=== PATIENT | male | born 1975 | race Caucasian/White ===

== ENCOUNTER 2020-05-16 11:15 | Inpatient (IN) ==
[2020-05-16] MEDS ORDERED: KETOROLAC TROMETHAMINE 15 MG/ML VIAL IV STA (12:10)
[2020-05-16] MEDS ORDERED: SODIUM CHLORIDE 0.9% 1000ML 2,000 ML IV SCH (12:15)
--- NOTE | 2020-05-16 12:18 | Emergency Department Note ---
Impression & Plan Anaplasmosis, Fever, Elevated LFTs ED Provider Note Provider: Byron Rodriguez MD DATE OF SERVICE: 05/16/2020 CHIEF COMPLAINT: Fever, headache, fatigue HISTORY OF PRESENT ILLNESS: Patient is a 44-year-old gentleman history of reflux on Nexium presenting today complaining of onset of fever and myalgia with headache starting about 36 hours ago. Patient states that he works in the [employer]. Lives at home with his . Denies travel or sick contact that he knows of. His is well. Endorses a fever 103 yesterday with diffuse myalgias and headache. Slight light-sensitive. Denies neck pain sore throat cough or rhinorrhea. States with exertion he feels maybe slightly short of breath. Denies chest pain or abdominal pain but did vomit once last night. Denies diarrhea. Denies rash or recent tick bite. Denies history of similar. Has been using some Tylenol last around 9 AM this morning which has intermittently helped with his fever symptoms. REVIEW OF SYSTEMS: A total of 10 review of systems was obtained and negative except as stated above in the HPI. PAST MEDICAL HISTORY: As noted above MEDICATIONS: Nexium SOCIAL HISTORY: Occasional smoker, works at the penitentiary, lives at home with , regular alcohol PHYSICAL EXAM: GENERAL: alert and oriented laying on the stretcher with eyes closed resting Head: normocephalic and atraumatic EYES: No injection, discharge or icterus. PERRL, EOMI. mildly photophobic NECK: Trachea midline. Supple. Non-meningismus ENT: Mucous membranes pink and moist. Pharynx without erythema or exudate. LUNGS: Airway patent. No retractions. Breath sounds clear with good air entry bilaterally. HEART: Regular rate and rhythm. No chest wall tenderness ABDOMEN: Soft and non-tender, without guarding or rebound. SKIN: Acyanotic, warm, dry, without rashes EXTREMITIES: Without swelling, tenderness or deformity NEUROLOGICAL: No focal deficits. No aphasia. No facial droop or slurred speech. EKG: Sinus tachycardia 105 bpm. No PVCs. No acute ST segment elevation or depression. QTC 46. CONTINUOUS CARDIAC MONITORING: was ordered and showed a heart rate of 118 bpm in sinus tachycardia Patient's hypertension was referred to PCP HOSPITAL COURSE: [id number] Patient was first seen and H&P performed. 1430 Patient reassessed and updated. Patient was reassessed and still with fever and tachycardic and appears somewhat flushed. Discussed findings. Discussed concern for possible tickborne illness. Discussed recommendation for the observation the hospital patient was agreement. Will discuss with the hospitalist team. Patient's laboratory studies and imaging reviewed. Differential includes Viral syndrome, otitis, pharyngitis, pneumonia, influenza, meningitis, urinary tract infection, sepsis, bacteremia, as well as other p athologies. IMPRESSION/MEDICAL DECISION MAKING: Patient presents with fever myalgias and some headache over 36 hours ago. Does not appear grossly meningitic. Febrile here and given Toradol. No leukocytosis is noted or anemia. No focal neurological deficits and I doubt this represents CVA or subarachnoid hemorrhage or brain mass. Without evidence of significant electrolyte abnormality. LFTs are mildly elevated in the 400s and 300s without bilirubin elevation. Negative troponin EKG without findings. Lipase is negative for signs of pancreatitis. Do question if this could be again tick borne disease versus mild hepatitis versus coronavirus. Covid test was ordered although lower suspicion. Blood smear is concerning for anaplasmosis. Initially did cover broadly with ceftriaxone and given doxycycline. Given that he still appears quite weak and symptomatic discussed with the hospitalist further observation the patient was in agreement this plan. Later given some Tylenol for persistent fever. DIAGNOSIS: Fever, anaplasmosis, elevated LFTs DISPOSITION: Hospitalist will evaluate Patient was agreeable with this plan. Past Med/Surg History Medical History GERD (gastroesophageal reflux disease) Lyme disease Surgical History H/O vasectomy Family History Other Breast cancer Prostate cancer Social History Preferred Language: Mohawk Current Living Situation: Spouse Feels Safe at Home: Yes Smoking Status: Current some day smoker Tobacco Type: smokeless tobacco ; Hx Alcohol Use: Yes Allergies Allergies Allergy/AdvReac Type Severity Reaction Status Date / Time fexofenadine Allergy . Verified 05/16/20 14:44 Home Meds Home Medications Medication Instructions Recorded Confirmed esomeprazole magnesium [Nexium] 20 mg PO QAM 05/16/20 05/16/20 Results & Data (ED) Vital Signs Vital Signs - 24 hr 05/16/20 11:19 05/16/20 11:26 05/16/20 11:28 Temperature 37.0 C Temperature Source Oral Pulse Rate 105 H 107 H 105 H Pulse Rate [Apical] Pulse Rate from SpO2 Sensor 107 H 106 H Respiratory Rate 26 H 28 H 30 H Respiratory Effort / Characteristics Short of Breath Respiratory Depth Normal Respiratory Pattern Regular Blood Pressure 138/91 138/91 Blood Pressure [Right Arm] Blood Pressure Mean 106 99 Blood Pressure Mean [Right Arm] Blood Pressure Position Sitting Pulse Oximetry 98 98 98 Oxygen Delivery Method Room Air Sepsis Recent Fever Within 48 Hours Yes Sepsis New/Unexplained Change in Mental Status No Sepsis Action Taken by Nursing Physician Notified 05/16/20 11:30 05/16/20 12:00 05/16/20 12:30 Temperature Temperature Source Pulse Rate 105 H 108 H 112 H Pulse Rate [Apical] Pulse Rate from SpO2 Sensor 106 H 108 H 112 H Respiratory Rate 28 H 30 H 23 Respiratory Effort / Characteristics Respiratory Depth Respiratory Pattern Blood Pressure Blood Pressure [Right Arm] Blood Pressure Mean Blood Pressure Mean [Right Arm] Blood Pressure Position Pulse Oximetry 98 95 96 Oxygen Delivery Method Sepsis Recent Fever Within 48 Hours Sepsis New/Unexplained Change in Mental Status Sepsis Action Taken by Nursing 05/16/20 13:00 05/16/20 13:30 05/16/20 13:41 Temperature Temperature Source Pulse Rate 115 H 116 H 118 H Pulse Rate [Apical] Pulse Rate from SpO2 Sensor 140 H 116 H 118 H Respiratory Rate 30 H 26 H 32 H Respiratory Effort / Characteristics Respiratory Depth Respiratory Pattern Blood Pressure 166/93 H Blood Pressure [Right Arm] Blood Pressure Mean 105 Blood Pressure Mean [Right Arm] Blood Pressure Position Pulse Oximetry 96 98 97 Oxygen Delivery Method Sepsis Recent Fever Within 48 Hours Sepsis New/Unexplained Change in Mental Status Sepsis Action Taken by Nursing 05/16/20 13:42 05/16/20 14:00 05/16/20 14:30 Temperature Temperature Source Pulse Rate 117 H 112 H Pulse Rate [Apical] 116 H Pulse Rate from SpO2 Sensor 117 H 111 H Respiratory Rate 28 H 31 H 22 Respiratory Effort / Characteristics Respiratory Depth Respiratory Pattern Blood Pressure Blood Pressure [Right Arm] 166/93 H Blood Pressure Mean Blood Pressure Mean [Right Arm] 117 Blood Pressure Position Pulse Oximetry 96 94 96 Oxygen Delivery Method Room Air Sepsis Recent Fever Within 48 Hours Sepsis New/Unexplained Change in Mental Status Sepsis Action Taken by Nursing 05/16/20 14:44 05/16/20 15:00 05/16/20 15:30 Temperature 38.3 C H Temperature Source Oral Pulse Rate 107 H 102 H 100 H Pulse Rate [Apical] 107 H Pulse Rate from SpO2 Sensor 107 H 102 H 100 H Respiratory Rate 26 H 19 26 H Respiratory Effort / Characteristics Respiratory Depth Respiratory Pattern Blood Pressure 117/66 Blood Pressure [Right Arm] 117/66 Blood Pressure Mean 76 Blood Pressure Mean [Right Arm] 83 Blood Pressure Position Pulse Oximetry 96 97 95 Oxygen Delivery Method Room Air Sepsis Recent Fever Within 48 Hours Sepsis New/Unexplained Change in Mental Status Sepsis Action Taken by Nursing 05/16/20 16:00 05/16/20 16:30 05/16/20 16:51 Temperature Temperature Source Pulse Rate 100 H 102 H Pulse Rate [Apical] Pulse Rate from SpO2 Sensor 100 H Respiratory Rate 30 H 18 Respiratory Effort / Characteristics Respiratory Depth Respiratory Pattern Blood Pressure 125/77 Blood Pressure [Right Arm] Blood Pressure Mean 93 Blood Pressure Mean [Right Arm] Blood Pressure Position Pulse Oximetry 94 Oxygen Delivery Method Sepsis Recent Fever Within 48 Hours Sepsis New/Unexplained Change in Mental Status Sepsis Action Taken by Nursing 05/16/20 17:00 05/16/20 17:30 05/16/20 18:03 Temperature Temperature Source Pulse Rate 108 H 105 H 109 H Pulse Rate [Apical] Pulse Rate from SpO2 Sensor Respiratory Rate 23 31 H 29 H Respiratory Effort / Characteristics Respiratory Depth Respiratory Pattern Blood Pressure Blood Pressure [Right Arm] Blood Pressure Mean Blood Pressure Mean [Right Arm] Blood Pressure Position Pulse Oximetry Oxygen Delivery Method Sepsis Recent Fever Within 48 Hours Sepsis New/Unexplained Change in Mental Status Sepsis Action Taken by Nursing 05/16/20 18:30 05/16/20 18:51 05/16/20 18:54 Temperature 39.6 C H Temperature Source Oral Pulse Rate 114 H 115 H Pulse Rate [Apical] Pulse Rate from SpO2 Sensor Respiratory Rate 36 H 21 Respiratory Effort / Characteristics Respiratory Depth Respiratory Pattern Blood Pressure 143/92 H Blood Pressure [Right Arm] Blood Pressure Mean 103 Blood Pressure Mean [Right Arm] Blood Pressure Position Pulse Oximetry Oxygen Delivery Method Sepsis Recent Fever Within 48 Hours Sepsis New/Unexplained Change in Mental Status Sepsis Action Taken by Nursing 05/16/20 20:13 Temperature 37.7 C H Temperature Source Oral Pulse Rate Pulse Rate [Apical] 110 H Pulse Rate from SpO2 Sensor Respiratory Rate 26 H Respiratory Effort / Characteristics Respiratory Depth Respiratory Pattern Blood Pressure Blood Pressure [Right Arm] 125/85 Blood Pressure Mean Blood Pressure Mean [Right Arm] 98 Blood Pressure Position Pulse Oximetry 95 Oxygen Delivery Method Room Air Sepsis Recent Fever Within 48 Hours Sepsis New/Unexplained Change in Mental Status Sepsis Action Taken by Nursing Laboratory Data Result diagrams: 05/16/20 13:05 05/16/20 13:05 Lab Results 05/16/20 05/16/20 05/16/20 Range/Units 13:05 13:05 13:05 WBC (4.8-10.8) K/uL RBC (4.7-6.1) M/uL Hgb (14.0-18.0) g/dL Hct (42-52) % MCV (80-100) fL MCH (25-34) pg MCHC (32-36) g/dL RDW Std Deviation (36.4-46.3) fL RDW Coeff of Sharyn (11.5-14.5) % Plt Count (130-400) K/uL MPV (7.4-10.4) fL Immature Gran % (Auto) % Neut % (Auto) % Lymph % (Auto) % Fountain % (Auto) % Eos % (Auto) % Baso % (Auto) % Neut # (Auto) (1.4-6.5) K/uL Lymph # (Auto) (1.2-3.4) K/uL Fountain # (Auto) (0.11-0.59) K/uL Eos # (Auto) (0-0.5) K/uL Baso # (Auto) (0-0.2) K/uL Immature Gran # (Auto) (0.00-0.02) K/uL Absolute Nucleated RBC (0-0) K/uL Nucleated RBC % (auto) % PT 11.0 (9.0-12.0) Seconds INR 1.0 (0.9-1.1) Sodium 137 (136-145) mmol/L Potassium 3.6 (3.5-5.1) mmol/L Chloride 104 (98-107) mmol/L Carbon Dioxide 24 (21-32) mmol/L Anion Gap 9.0 (3-11) BUN 11 (7-18) mg/dl Creatinine 1.26 (0.6-1.4) mg/dl Est Cr Clr Drug Dosing 82.9 ml/min Est GFR ( Amer) 79.3 Est GFR (Non-Af Amer) 68.4 BUN/Creatinine Ratio 8.4 L (10-20) Glucose 122 H (70-99) mg/dl Lactate (0.4-2.0) mmol/L Calcium 8.5 (8.5-10.1) mg/dl Total Bilirubin 0.5 (0.2-1) mg/dl AST 466 H (15-37) U/L ALT 355 H (12-78) U/L Alkaline Phosphatase 73 (45-117) U/L Troponin I < 0.015 (0-0.045) ng/ml Total Protein 8.3 H (6.4-8.2) gm/dl Albumin 3.3 L (3.4-5.0) gm/dl Globulin 5.0 H (2.5-4.0) gm/dl Albumin/Globulin Ratio 0.7 L (0.9-2) Lipase 75 (73-393) U/L Procalcitonin 1.02 H (0-0.5) ng/ml Anaplasma Smear A. phagocytophilum DNA Lyme Disease IgG Ab (Negative) Lyme Disease IgM Ab (Negative) 05/16/20 05/16/20 05/16/20 Range/Units 13:05 13:05 13:05 WBC 6.25 (4.8-10.8) K/uL RBC 5.45 (4.7-6.1) M/uL Hgb 16.8 (14.0-18.0) g/dL Hct 49.4 (42-52) % MCV 90.6 (80-100) fL MCH 30.8 (25-34) pg MCHC 34.0 (32-36) g/dL RDW Std Deviation 45.8 (36.4-46.3) fL RDW Coeff of Sharyn 14.0 (11.5-14.5) % Plt Count 205 (130-400) K/uL MPV 9.4 (7.4-10.4) fL Immature Gran % (Auto) 0.3 % Neut % (Auto) 89.0 % Lymph % (Auto) 8.2 % Fountain % (Auto) 2.2 % Eos % (Auto) 0.0 % Baso % (Auto) 0.3 % Neut # (Auto) 5.56 (1.4-6.5) K/uL Lymph # (Auto) 0.51 L (1.2-3.4) K/uL Fountain # (Auto) 0.14 (0.11-0.59) K/uL Eos # (Auto) 0.00 (0-0.5) K/uL Baso # (Auto) 0.02 (0-0.2) K/uL Immature Gran # (Auto) 0.02 (0.00-0.02) K/uL Absolute Nucleated RBC 0.00 (0-0) K/uL Nucleated RBC % (auto) 0.0 % PT (9.0-12.0) Seconds INR (0.9-1.1) Sodium (136-145) mmol/L Potassium (3.5-5.1) mmol/L Chloride (98-107) mmol/L Carbon Dioxide (21-32) mmol/L Anion Gap (3-11) BUN (7-18) mg/dl Creatinine (0.6-1.4) mg/dl Est Cr Clr Drug Dosing ml/min Est GFR ( Amer) Est GFR (Non-Af Amer) BUN/Creatinine Ratio (10-20) Glucose (70-99) mg/dl Lactate (0.4-2.0) mmol/L Calcium (8.5-10.1) mg/dl Total Bilirubin (0.2-1) mg/dl AST (15-37) U/L ALT (12-78) U/L Alkaline Phosphatase (45-117) U/L Troponin I (0-0.045) ng/ml Total Protein (6.4-8.2) gm/dl Albumin (3.4-5.0) gm/dl Globulin (2.5-4.0) gm/dl Albumin/Globulin Ratio (0.9-2) Lipase (73-393) U/L Procalcitonin (0-0.5) ng/ml Anaplasma Smear See Comment A Cancelled A. phagocytophilum DNA Lyme Disease IgG Ab Negative (Negative) Lyme Disease IgM Ab Negative (Negative) 05/16/20 05/16/20 05/16/20 Range/Units 13:05 13:33 17:31 WBC (4.8-10.8) K/uL RBC (4.7-6.1) M/uL Hgb (14.0-18.0) g/dL Hct (42-52) % MCV (80-100) fL MCH (25-34) pg MCHC (32-36) g/dL RDW Std Deviation (36.4-46.3) fL RDW Coeff of Sharyn (11.5-14.5) % Plt Count (130-400) K/uL MPV (7.4-10.4) fL Immature Gran % (Auto) % Neut % (Auto) % Lymph % (Auto) % Fountain % (Auto) % Eos % (Auto) % Baso % (Auto) % Neut # (Auto) (1.4-6.5) K/uL Lymph # (Auto) (1.2-3.4) K/uL Fountain # (Auto) (0.11-0.59) K/uL Eos # (Auto) (0-0.5) K/uL Baso # (Auto) (0-0.2) K/uL Immature Gran # (Auto) (0.00-0.02) K/uL Absolute Nucleated RBC (0-0) K/uL Nucleated RBC % (auto) % PT (9.0-12.0) Seconds INR (0.9-1.1) Sodium (136-145) mmol/L Potassium (3.5-5.1) mmol/L Chloride (98-107) mmol/L Carbon Dioxide (21-32) mmol/L Anion Gap (3-11) BUN (7-18) mg/dl Creatinine (0.6-1.4) mg/dl Est Cr Clr Drug Dosing ml/min Est GFR ( Amer) Est GFR (Non-Af Amer) BUN/Creatinine Ratio (10-20) Glucose (70-99) mg/dl Lactate 2.7 H* 1.0 (0.4-2.0) mmol/L Calcium (8.5-10.1) mg/dl Total Bilirubin (0.2-1) mg/dl AST (15-37) U/L ALT (12-78) U/L Alkaline Phosphatase (45-117) U/L Troponin I (0-0.045) ng/ml Total Protein (6.4-8.2) gm/dl Albumin (3.4-5.0) gm/dl Globulin (2.5-4.0) gm/dl Albumin/Globulin Ratio (0.9-2) Lipase (73-393) U/L Procalcitonin (0-0.5) ng/ml Anaplasma Smear A. phagocytophilum DNA Cancelled Lyme Disease IgG Ab (Negative) Lyme Disease IgM Ab (Negative) Administered Medications Discontinued Medications Acetaminophen (Tylenol) 650 mg PO NOW STA Stop: 05/16/20 20:27 Last Admin: 05/16/20 20:39 Dose: 650 mg Documented by: [id number] Doxycycline Hyclate (Vibramycin) 100 mg PO NOW STA Stop: 05/16/20 14:36 Last Admin: 05/16/20 16:10 Dose: 100 mg Documented by: [id number] Sodium Chloride (Nss 1000ml) 2,000 mls @ 999 mls/hr IV .Q2H1M HANK Stop: 05/16/20 14:15 Last Infusion: 05/16/20 16:09 Dose: 0 mls/hr Documented by: [id number] Admin: 05/16/20 13:42 Dose: 999 mls/hr Documented by: [id number] Ceftriaxone Sodium (Rocephin) 2,000 mg in 70 mls @ 140 mls/hr IV NOW STA Stop: 05/16/20 15:06 Last Infusion: 05/16/20 16:55 Dose: 0 mls/hr Documented by: [id number] Admin: 05/16/20 16:10 Dose: 140 mls/hr Documented by: [id number] Ketorolac Tromethamine (Toradol) 15 mg IV NOW STA Stop: 05/16/20 12:11 Last Admin: 05/16/20 13:41 Dose: 15 mg Documented by: [id number] Discharge Plan Visit Data Chief Complaint: Fever Stated Complaint: FEVER ED Provider: Byron Rodriguez Discharge Problem: Anaplasmosis, Fever, Elevated LFTs Patient Disposition: Being Evaluated by Hospitalist Forms Stand Alone Forms: [facility] Prescriptions Prescriptions: No Action esomeprazole magnesium [Nexium] 20 mg Capsule,Delayed Release(Dr/Ec) 20 mg PO QAM RF: 0 Referrals Referrals: Ant Shepard MD [Primary Care Provider] -
--- NOTE | 2020-05-16 12:36 | XRay Report ---
XR chest 1V portable CLINICAL HISTORY: fever dyspnea COMPARISON STUDY: 11/23/2013 FINDINGS: The bones soft tissues and hemidiaphragms are normal. The cardiomediastinal silhouette is n ormal. The lungs are clear. The pulmonary vasculature is normal. IMPRESSION: Negative chest. ACT 112: Negative or not required by law. The above report was generated using voice recognition software. It may contain grammatical, syntax or spelling errors. Electronically signed by: Devang De M.D. 05/16/2020 12:35 PM
[2020-05-16 13:17] LABS: Basophils # (auto) 0.02 K/uL (0-0.2); Basophils % (auto) 0.3 %; Hematocrit (blood only) 49.4 % (42-52); Hemoglobin 16.8 g/dL (14.0-18.0); Immature Granulocytes # (auto) 0.02 K/uL (0.00-0.02); Immature Granulocytes % (auto) 0.3 %; Lymphocytes # (auto) 0.51 K/uL (1.2-3.4); Lymphocytes % (auto) 8.2 %; Mean Corpuscular Hemoglobin 30.8 pg (25-34); Mean Corpuscular Volume 90.6 fL (80-100); Mean Platelet Volume 9.4 fL (7.4-10.4); Monocytes # (auto) 0.14 K/uL (0.11-0.59); Monocytes % (auto) 2.2 %; Neutrophils # (auto) 5.56 K/uL (1.4-6.5); Platelet Count 205 K/uL (130-400); RDW Standard Deviation 45.8 fL (36.4-46.3); Red Blood Count 5.45 M/uL (4.7-6.1); White Blood Count 6.25 K/uL (4.8-10.8)
[2020-05-16 13:33] LABS: Alanine Aminotransferase 355 U/L (12-78); Albumin Level 3.3 gm/dl (3.4-5.0); Aspartate Aminotransferase 466 U/L (15-37); BUN Creatinine Ratio 8.4 (10-20); Blood Urea Nitrogen 11 mg/dl (7-18); Calcium 8.5 mg/dl (8.5-10.1); Carbon Dioxide 24 mmol/L (21-32); Chloride 104 mmol/L (98-107); Creatinine Clr Calc Pharmacy 82.9 ml/min; Est GFR (African American) 79.3; Est GFR (Non-African American) 68.4; Glucose 122 mg/dl (70-99); Lipase 75 U/L (73-393); Potassium 3.6 mmol/L (3.5-5.1); Sodium 137 mmol/L (136-145)
[2020-05-16 13:38] LABS: Albumin Globulin Ratio 0.7 (0.9-2); Alkaline Phosphatase 73 U/L (45-117); Bilirubin,Total 0.5 mg/dl (0.2-1); Total Protein 8.3 gm/dl (6.4-8.2); Troponin I < 0.015 ng/ml (0-0.045)
[2020-05-16] MEDS ORDERED: DOXYCYCLINE HYCLATE 100 MG CAP PO STA (14:35)
[2020-05-16] MEDS ORDERED: cefTRIAXone SODIUM 2,000 MG/70 ML BAG IV STA (14:37)
--- NOTE | 2020-05-16 15:39 | History & Physical Report ---
Date of Service May 16, 2020 Assessment & Plan (1) Sepsis: (2) Anaplasmosis: This is a 44yo M with a PMH of GERD who presents with fever and malaise x 3 days and was found to have sepsis 2/2 suspected anaplasmosis. Sepsis Anaplasmosis CXR:Negative chest. R/O COVID Less likely Mushroom toxicity Elevated Procalcitonin, Lactic acid. Febrile x 3 days with current temp 38.3 C with HR of 107, lactate of 2.7 and procalcitonin 1.02 Transaminitis with AST of 466 and ALT of 355. WBC and platelets within normal limits Concern for anaplasmosis with peripheral smear showing intracytoplasmic neutrophilic inclusions noted. Pathology consult to follow Will treat empirically with doxycycline. Rocephin given x1 in ED Follow blood cultures, anaplasma and lyme serology pending. COVID PCR pending Continue IV fluids Monitor LFTs Trend lactate levels Mild Transaminitis Monitor LFTs given H/O mushroom consumption Check RUQ USD Sinus Tachycardia Secondary to above Constipation Started on bowel regimen (3) GERD (gastroesophageal reflux disease): Continue PPI DVT Ppx: SQ lovenox Code status: FULL PCP: Drea Dispo: Admitted to [facility]. Plan to return home once medically stable. Patient seen in collaboration with Dr. Farr. Please see addendum. History of Present Illness Chief Complaint: fever, malaise Primary Care Provider: Ant Shepard MD Patient is a 44 yr M with a PMH of GERD and H/O lyme's disease who presents with fever, chills and malaise x 3 days with tmax of 103. Also endorses headache, nausea/vomiting and myalgias. He works at [employer]. Patient also states having some dyspnea since Friday. Fever has been mostly persistent, despite using Tylenol. Has been having poor sleep since 2 days. He had nausea and had an episode of vomiting yesterday. He admits to eating mushrooms (not store bought) which he believes are edible 1 week ago " I had only 2 bites and did not like it". No known history of tick bite/exposure or rash recently. Also denies any history of recent travel, exposure to COVID patients. But he has high risk given his work at [employer]. Denies any history of chest pain, palpitations, dizziness, pedal edema, cough, hemoptysis, change in vision, abdominal pain, diarrhea, dysuria, hematuria, recent change in medications. He admits to being constipated since Friday. Allergies Allergy/AdvReac Type Severity Reaction Status Date / Time fexofenadine Allergy . Verified 05/16/20 14:44 Home Medications Home Medications Medication Instructions Recorded Confirmed Type esomeprazole magnesium [Nexium] 20 mg PO QAM 05/16/20 05/16/20 History Past Med/Surg History Medical History GERD (gastroesophageal reflux disease) Lyme disease Surgical History H/O vasectomy Family History Other Breast cancer Prostate cancer Social History Preferred Language: Polish Current Living Situation: Spouse Feels Safe at Home: Yes Smoking Status: Current some day smoker Tobacco Type: smokeless tobacco ; Hx Alcohol Use: Yes Review of Systems Review of Systems: At least ten systems reviewed and negative except as noted in the HPI. Physical Exam Physical Exam: Please see Dr. Farr's addendum for physical exam. Physical Exam: Vitals signs as noted above General Appearance:Moderately built and nourished, no apparent distress Head: normocephalic, Atraumatic Eyes: normal inspection, EOMI Neck: supple, Trachea midline Respiratory/Chest: Normal breath sounds, CTA, No accessory muscle use Cardiovascular: S1, S2, No murmur, +Tachycardia Abdomen/GI:Soft, Non tender, Bowel sounds present Extremities/Musculoskelatal:normal inspection, no edema Neurologic/Psych:AAOX3, grossly no focal neurological deficits Skin: normal color, warm Results & Data Results & Data ([facility]) Vital Signs (Past 12 Hours) Vital Signs Temp Pulse Pulse Resp BP BP Pulse Ox 05/16/20 14:44 38.3 C H 107 H 16 117/66 96 05/16/20 13:42 116 H 28 H 166/93 H 96 05/16/20 11:19 37.0 C 105 H 26 H 138/91 98 Laboratory Results Short CBC 05/16/20 Range/Units 13:05 WBC 6.25 (4.8-10.8) K/uL Hgb 16.8 (14.0-18.0) g/dL Hct 49.4 (42-52) % Plt Count 205 (130-400) K/uL BMP 05/16/20 13:05 Sodium 137 Potassium 3.6 Chloride 104 Carbon Dioxide 24 BUN 11 Creatinine 1.26 Glucose 122 H Calcium 8.5 Cardiac Enzymes 05/16/20 Range/Units 13:05 Troponin I < 0.015 (0-0.045) ng/ml Liver Function 05/16/20 Range/Units 13:05 Total Bilirubin 0.5 (0.2-1) mg/dl AST 466 H (15-37) U/L ALT 355 H (12-78) U/L Alkaline Phosphatase 73 (45-117) U/L Albumin 3.3 L (3.4-5.0) gm/dl Diagnostic Findings CXR: IMPRESSION: Negative chest. ECG Additional Comments: EKG: Sinus tachycardia, QTC 446 Code Status & VTE Plan VTE Prophylaxis Plan VTE Prophylaxis will be ordered: Yes Supervising Physician Co-Signing Physician Notes Patient is a 44-year-old male with history of GERD, Lyme's disease and other medical problems presents with history of fever, chills, malaise, headache, nausea and vomiting, myalgias since 3 days duration. Also reports associated dyspnea. He denies any recent history of tick bite or rash. His fever persisted despite using Tylenol. Admits to having constipation since 2 days. His chest x-ray showed no acute process. His peripheral smear suggestive of an cytoplasmic neutrophilic inclusions. On exam patient is well-built and nourished, no apparent distress, normocephalic atraumatic, lungs are clear to auscultation, S1-S2, no murmur,+ tachycardia, abdomen soft, nontender, normal bowel sounds, no pedal edema, grossly no focal neurological deficits. Patient is admitted for management of sepsis secondary to anaplasmosis. Also to rule out COVID. Empirically started on doxycycline, ceftriaxone. Official peripheral smear pending. COVID screen pending. Blood cultures obtained. Continue IV fluids. Procalcitonin, lactate levels elevated. Lactate levels normalized with IV fluids. Also to rule out gallbladder/liver disease given history of mild transaminitis although likely secondary to anaplasmosis. Will get right upper quadrant ultrasound and monitor LFTs. Will start on bowel regimen for constipation. I personally reviewed the record. Patient is interviewed and examined at bedside. Patient's care is coordinated with Candida Herrera PA-C. Please refer to the documentation above for details of patient's presentation and for discussion of other issues.
[2020-05-16 15:47] LABS: Lyme Ab IgG w/WB Rflx Negative (Negative); Lyme Ab IgM w/WB Rflx Negative (Negative)
--- NOTE | 2020-05-16 16:01 | Electrocardiogram Report ---
Test Reason : Blood Pressure : / mmHG Vent. Rate : 105 BPM Atrial Rate : 105 BPM P-R Int : 162 ms QRS Dur : 086 ms QT Int : 338 ms P-R-T Axes : 010 -25 020 degrees QTc Int : 446 ms Sinus tachycardia Cannot rule out Anterior infarct , age undetermined Abnormal ECG When compared with ECG of 23-NOV-2013 12:55, No significant change was found Confirmed by Jaun Stark ([id number]) on 05/16/2020 4:01:26 PM Referred By: REFERRED SELF Confirmed By:Jaun Stark
[2020-05-16] MEDS ORDERED: ACETAMINOPHEN 325 MG TAB PO STA (20:26)
[2020-05-17] MEDS ORDERED: SODIUM CHLORIDE 0.9% 1000ML 1,000 ML IV SCH (01:08)
[2020-05-17] MEDS ORDERED: LORazepam 1 MG TAB PO PRN (01:08)
[2020-05-17] MEDS ORDERED: ONDANSETRON INJ 2 MG/ML 2 ML VIAL IV PRN (01:08)
[2020-05-17] MEDS ORDERED: POLYETHYLENE (MIRALAX) 17 GM PACK PO PRN (01:08)
[2020-05-17] MEDS ORDERED: ACETAMINOPHEN 325 MG TAB PO PRN (01:08)
[2020-05-17] MEDS: DOXYCYCLINE HYCLATE 100 MG CAP PO SCH ×3 (01:40→19:55)
[2020-05-17] MEDS: DOCUSATE SODIUM 100 MG CAP PO SCH ×3 (01:40→19:54)
[2020-05-17] MEDS: THIAMINE HCL 100 MG TAB PO SCH ×2 (01:40→08:43)
[2020-05-17] MEDS: FOLIC ACID 1 MG TAB PO SCH ×2 (01:41→08:41)
[2020-05-17 04:43] LABS: Appearance Urine Clear (Clear); Bacteria Urine Automated Negative (Negative); Bilirubin Urine Negative (Negative); Blood Urine 3+ (Negative); Cast Urine Automated 0 /lpf (0-5); Color Urine Dark Yellow; Glucose Urine UA Negative (Negative); Ketones Urine Negative (Negative); Leukocyte Esterase Urine Negative (Negative); Nitrite Urine Negative (Negative); Protein Urine 1+ (Negative); RBC Urine Automated >30 /hpf (0-4); Specific Gravity Urine 1.017 (1.000-1.030); Urobilinogen Urine Positive (Negative)
[2020-05-17 06:25] LABS: Basophils # (auto) 0.01 K/uL (0-0.2); Basophils % (auto) 0.2 %; Hematocrit (blood only) 43.1 % (42-52); Hemoglobin 14.8 g/dL (14.0-18.0); Immature Granulocytes # (auto) 0.01 K/uL (0.00-0.02); Immature Granulocytes % (auto) 0.2 %; Lymphocytes # (auto) 0.38 K/uL (1.2-3.4); Lymphocytes % (auto) 8.3 %; Mean Corpuscular Hemoglobin 30.8 pg (25-34); Mean Corpuscular Hgb Conc 34.3 g/dL (32-36); Mean Corpuscular Volume 89.8 fL (80-100); Mean Platelet Volume 9.7 fL (7.4-10.4); Monocytes # (auto) 0.13 K/uL (0.11-0.59); Monocytes % (auto) 2.8 %; Neutrophils # (auto) 4.06 K/uL (1.4-6.5); Neutrophils % (auto) 88.5 %; Platelet Count 157 K/uL (130-400); RDW Coefficient of Variation 13.8 % (11.5-14.5); RDW Standard Deviation 45.7 fL (36.4-46.3); White Blood Count 4.59 K/uL (4.8-10.8)
[2020-05-17 07:03] LABS: Albumin Level 2.8 gm/dl (3.4-5.0); BUN Creatinine Ratio 11.4 (10-20); Calcium 8.2 mg/dl (8.5-10.1); Creatinine Clr Calc Pharmacy 119.4 ml/min; Est GFR (African American) 120.2; Est GFR (Non-African American) 103.7; Potassium 3.3 mmol/L (3.5-5.1)
[2020-05-17 07:06] LABS: Albumin Globulin Ratio 0.8 (0.9-2); Bilirubin,Total 0.6 mg/dl (0.2-1); Globulin 3.7 gm/dl (2.5-4.0); Total Protein 6.5 gm/dl (6.4-8.2)
--- NOTE | 2020-05-17 08:31 | Ultrasound Report ---
US liver CLINICAL HISTORY: transaminitis COMPARISON STUDY: CT scan performed 10/13/2012 FINDINGS: The liver is of increased echogenicity, nonspecific finding most often seen in hepatic stea tosis. No focal hepatic masses are visualized. There is no right-sided hydronephrosis. There is no ductal dilatation. The common bile duct measures 5 mm. The gallbladder appears unremarkable. The pancreas was poorly visualized. Incidental note is made of a right pleural effusion. IMPRESSION: 1. Increased hepatic echogenicity, a finding most often seen in hepatic steatosis 2. Ultrasonographically normal gallbladder. No ductal dilatation 3. Suboptimal visualization of pancreas 4. Right pleural effusion ACT 112: Negative or not required by law. Electronically signed by: Luis Caldwell M.D. 05/17/2020 8:29 AM
[2020-05-17] MEDS: PANTOprazole 40 MG TAB PO SCH (08:42)
[2020-05-17] MEDS: ENOXAPARIN INJ 40 MG/0.4 ML SYR SQ SCH (08:42)
--- NOTE | 2020-05-17 10:17 | Hospitalist Progress Note ---
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 Elevated Procalcitonin, Lactic acid, elevated procalcitonin on admission -COVID-19 negative -empirically given ceftriaxone daily and doxcycline BID for suspected anaplasmosis infection -Lyme labs negative -peripheral blood smear and other anaplasmosis labs are pending -follow the 05/16/2020 admission blood cultures -Sinus Tachycardia resolved (3) Elevated LFTs: Transaminitis -Ultrasound of Liver: Increased hepatic echogenicity, a finding most often seen in hepatic steatosis; Ultrasonographically normal gallbladder. No ductal dilatation; Suboptimal visualization of pancreas; Right pleural effusion on ultrasound but was not seen on admission chest X ray so suggests that any effusion is likely minimal -alternate between acetaminophen and ibuprofen prn for fever or pain -advise limiting alcohol use when outpatient Constipation -senna and miralax (4) GERD (gastroesophageal reflux disease): -Continue PPI mild hypokalemia -serum potassium 3.3 on 05/17/2020, oral potassium ordered DVT Prophylaxis: SQ lovenox Code status: FULL Admission and Anticipated Discharge Date Admission Date: May 16, 2020 Subjective Patient not in distress. He does feel warm but less febrile today compared to yesterday vital signs. patient denies acute pain. denies nausea. no headache. no dizziness. he does not have tremors today. he reports lass bowel movements a couple days ago but he also notes less appetite in recent days Review of Systems Review of Systems: All systems reviewed & are unremarkable except as noted in Subjective Physical Exam Constitutional: comfortable Eyes: PERRL, conjunctivae normal, anicteric sclerae EOM intact bilaterally ENMT: external ear and nose normal, oropharynx normal Neck: trachea midline, no thyromegaly normal visual inspection Respiratory: normal respiratory effort, lungs clear to auscultation Cardiovascular: Rate/Rhythm: regular rate Gastrointestinal (Abdomen): normal bowel sounds, soft, nontender, no hepatosplenomegaly Musculoskeletal: Head/Neck/Chest: normocephalic and head atraumatic Neurologic: PERRL, EOMI, accommodation nl, no face palsy, no dysarthria CN's II-XI intact bilaterally Psychiatric: A+Ox3, euthymic affect Results & Data Results & Data ([facility]) Vital Signs (Past 12 Hours) Vital Signs Temp Pulse Pulse Resp BP BP Pulse Ox 05/17/20 07:23 37.6 C H 89 18 144/84 H 97 05/17/20 07:18 84 05/17/20 03:15 37.2 C 111 H 19 158/87 H 96 05/17/20 00:50 36.6 C 90 24 144/82 H 96 05/17/20 00:30 91 H 24 132/78 05/17/20 00:00 88 20 123/74 96 05/16/20 23:30 86 23 136/82 96 05/16/20 23:00 90 22 124/84 97 05/16/20 22:30 95 H 24 127/82 97 05/16/20 22:24 37.5 C 05/16/20 22:23 99 H 24 129/81 97
[2020-05-17] MEDS ORDERED: POLYETHYLENE (MIRALAX) 17 GM PACK PO ONE (10:30)
[2020-05-17] MEDS ORDERED: POTASSIUM CHLORIDE 20 MEQ TABCR PO ONE (10:45)
[2020-05-17] MEDS: ACETAMINOPHEN 325 MG TAB PO PRN ×2 (11:31→15:44)
[2020-05-17] MEDS: SENNA 8.6 MG TAB PO SCH (13:20)
[2020-05-17 14:14] LABS: Anaplasmosis Smear(Rpt to DOH) Pos for Anaplasma
[2020-05-17] MEDS ORDERED: cefTRIAXone SODIUM 2,000 MG in DEXTROSE 5% 50 ML IV SCH (16:00)
[2020-05-17] MEDS: IBUPROFEN 200 MG TAB PO PRN (19:11)
[2020-05-17] MEDS: POLYETHYLENE (MIRALAX) 17 GM PACK PO SCH (19:55)
[2020-05-18] MEDS: ACETAMINOPHEN 325 MG TAB PO PRN (06:40)
[2020-05-18 06:42] LABS: Basophils # (auto) 0.03 K/uL (0-0.2); Eosinophils # (auto) 0.01 K/uL (0-0.5); Eosinophils % (auto) 0.3 %; Hematocrit (blood only) 42.5 % (42-52); Hemoglobin 15.3 g/dL (14.0-18.0); Lymphocytes # (auto) 0.56 K/uL (1.2-3.4); Lymphocytes % (auto) 18.4 %; Mean Corpuscular Hemoglobin 31.5 pg (25-34); Mean Corpuscular Volume 87.4 fL (80-100); Mean Platelet Volume 9.6 fL (7.4-10.4); Monocytes # (auto) 0.26 K/uL (0.11-0.59); Monocytes % (auto) 8.6 %; Neutrophils # (auto) 2.18 K/uL (1.4-6.5); Neutrophils % (auto) 71.7 %; Platelet Count 113 K/uL (130-400); RDW Standard Deviation 45.2 fL (36.4-46.3); Red Blood Count 4.86 M/uL (4.7-6.1); White Blood Count 3.04 K/uL (4.8-10.8)
[2020-05-18 07:13] LABS: Albumin Level 2.9 gm/dl (3.4-5.0); Calcium 8.5 mg/dl (8.5-10.1); Creatinine Clr Calc Pharmacy 105.6 ml/min; Est GFR (African American) 106.2; Est GFR (Non-African American) 91.6; Potassium 3.6 mmol/L (3.5-5.1)
[2020-05-18 07:16] LABS: Albumin Globulin Ratio 0.7 (0.9-2); Bilirubin,Total 0.6 mg/dl (0.2-1); Globulin 4.1 gm/dl (2.5-4.0)
[2020-05-18 07:19] LABS: Echinocytes 1+
[2020-05-18] MEDS: IBUPROFEN 200 MG TAB PO PRN (07:52)
[2020-05-18] MEDS: PANTOprazole 40 MG TAB PO SCH (07:53)
[2020-05-18] MEDS: DOXYCYCLINE HYCLATE 100 MG CAP PO SCH (07:53)
[2020-05-18] MEDS: FOLIC ACID 1 MG TAB PO SCH (07:53)
[2020-05-18] MEDS: THIAMINE HCL 100 MG TAB PO SCH (07:54)
[2020-05-18] MEDS: DOCUSATE SODIUM 100 MG CAP PO SCH (07:54)
[2020-05-18] MEDS: ENOXAPARIN INJ 40 MG/0.4 ML SYR SQ SCH (07:55)
[2020-05-18] MEDS: POLYETHYLENE (MIRALAX) 17 GM PACK PO SCH (07:56)
[2020-05-18] MEDS: SENNA 8.6 MG TAB PO SCH (10:48)
--- NOTE | 2020-05-18 12:46 | Hospitalist Progress Note ---
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 Elevated Procalcitonin, Lactic acid, elevated procalcitonin on admission -COVID-19 negative -Lyme labs negative -follow the 05/16/2020 admission blood cultures with no growth to date Patient was empirically started on ceftriaxone daily and doxycycline 100 mg twice a day starting on 05/16/2020 admission. PERIPHERAL SMEAR FOR REVIEW: 1. NORMOCHROMIC/NORMOCYTIC RED BLOOD CELLS, UNREMARKABLE PLATELETS, UNREMARKABLE MONOCYTES, AND DECREASED NUMBERS OF CYTOLOGICALLY UNREMARKABLE LYMPHOCYTES ARE ALL SEEN. 2. RARE PMN LEUKOCYTES REVEAL CYTOPLASMIC INCLUSIONS CONSISTENT WITH ANAPLASMOSIS. 3. BLASTS AND SCHISTOCYTES ARE NOT SEEN. 4. THE TRIAD OF CHANGES SUGGESTING BACTERIAL SEPSIS TO INCLUDE TOXIC GRANULATIONS AND DOHLE BODIES IS NOT SEEN. Discharge medication of Doxycycline 100 mg twice a day for 12 more days sent to [facility] on [address] [place] [address]. Patient was encouraged to quit alcohol use at home because on ultrasound of the liver or increased hepatic echogenicity, a finding most often seen in hepatic steatosis. and also because of transaminitis (elevated liver enzymes) AST from 466 on admission to 334 by 05/18/2020 and ALT from 355 on admission to 403 by 05/18/2020 Patient may take acetaminophen 325 every 6 hours as needed for pain of fever and should avoid more than 2000 mg of acetaminophen a day to avoid liver damage. Patient may alternate with ibupofren 200 mg every 6 hours as needed for pain or fever. Patient should have liver function enzymes rechecked by primary care doctor Patient may take senna daily for constipation follow up clinic appointment 05/25/2020 11:40 AM Provider Izabel King DO Department [facility] (3) Elevated LFTs: Transaminitis -Ultrasound of Liver: Increased hepatic echogenicity, a finding most often seen in hepatic steatosis; Ultrasonographically normal gallbladder. No ductal dilatation; Suboptimal visualization of pancreas; Right pleural effusion on ultrasound but was not seen on admission chest X ray so suggests that any effusion is likely minimal -alternate between acetaminophen and ibuprofen prn for fever or pain -advise limiting alcohol use when outpatient Constipation -senna and miralax while inpatient, senna on discharge (4) GERD (gastroesophageal reflux disease): -Continue PPI mild hypokalemia -serum potassium 3.3 on 05/17/2020, oral potassium ordered -potassium levels now at goal Code status: FULL Admission and Anticipated Discharge Date Admission Date: May 16, 2020 Subjective Last febrile temperature from 05/17/2020 noon time. Patient feeling better and wishes for hospital discharge. We discussed the discharge plans no nausea. no vomiting. no chest pain. no palpitations. no shortness of breath. no dizziness. no headache. Review of Systems Review of Systems: All systems reviewed & are unremarkable except as noted in Subjective Physical Exam Constitutional: comfortable Eyes: PERRL, conjunctivae normal, anicteric sclerae EOM intact bilaterally ENMT: external ear and nose normal, oropharynx normal Neck: trachea midline, no thyromegaly normal visual inspection Respiratory: normal respiratory effort, lungs clear to auscultation Cardiovascular: Rate/Rhythm: regular rate Gastrointestinal (Abdomen): normal bowel sounds, soft, nontender, no hepatosplenomegaly Musculoskeletal: Head/Neck/Chest: normocephalic and head atraumatic Neurologic: PERRL, EOMI, accommodation nl, no face palsy, no dysarthria CN's II-XI intact bilaterally Psychiatric: A+Ox3, euthymic affect Results & Data Results & Data ([facility]) Vital Signs (Past 12 Hours) Vital Signs Temp Pulse Pulse Resp BP BP Pulse Ox 05/18/20 07:08 37.4 C 97 H 18 130/86 97 05/18/20 07:06 96 H 05/18/20 03:28 37.1 C 85 19 137/84 98
--- NOTE | 2020-05-18 12:53 | Discharge Summary ---
Date of Service May 18, 2020 Admission HPI Per Admitting Provider Patient is a 44 yr M with a PMH of GERD and H/O lyme's disease who presents with fever, chills and malaise x 3 days with tmax of 103. Also endorses headache, nausea/vomiting and myalgias. He works at [employer]. Patient also states having some dyspnea since Friday. Fever has been mostly persistent, despite using Tylenol. Has been having poor sleep since 2 days. He had nausea and had an episode of vomiting yesterday. He admits to eating mushrooms (not store bought) which he believes are edible 1 week ago " I had only 2 bites and did not like it". No known history of tick bite/exposure or rash recently. Als o denies any history of recent travel, exposure to COVID patients. But he has high risk given his work at [employer]. Denies any history of chest pain, palpitations, dizziness, pedal edema, cough, hemoptysis, change in vision, abdominal pain, diarrhea, dysuria, hematuria, recent change in medications. He admits to being constipated since Friday. Principal Diagnosis Sepsis from Anaplasmosis infection Transaminitis Constipation Gastroesophageal reflux disease (GERD) Discharge Exam Constitutional comfortable Eyes PERRL, conjunctivae normal, anicteric sclerae EOM intact bilaterally ENMT external ear and nose normal, oropharynx normal Neck trachea midline, no thyromegaly normal visual inspection Respiratory normal respiratory effort, lungs clear to auscultation Cardiovascular Rate/Rhythm: regular rate Gastrointestinal (Abdomen) normal bowel sounds, soft, nontender, no hepatosplenomegaly Musculoskeletal Head/Neck/Chest: normocephalic and head atraumatic Neurologic PERRL, EOMI, accommodation nl, no face palsy, no dysarthria CN's II-XI intact bilaterally Psychiatric A+Ox3, euthymic affect Discharge Data Allergies Allergy/AdvReac Type Severity Reaction Status Date / Time fexofenadine Allergy . 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 Elevated Procalcitonin, Lactic acid, elevated procalcitonin on admission -COVID-19 negative -Lyme labs negative -follow the 05/16/2020 admission blood cultures with no growth to date Patient was empirically started on ceftriaxone daily and doxycycline 100 mg twice a day starting on 05/16/2020 admission. PERIPHERAL SMEAR FOR REVIEW: 1. NORMOCHROMIC/NORMOCYTIC RED BLOOD CELLS, UNREMARKABLE PLATELETS, UNREMARKABLE MONOCYTES, AND DECREASED NUMBERS OF CYTOLOGICALLY UNREMARKABLE LYMPHOCYTES ARE ALL SEEN. 2. RARE PMN LEUKOCYTES REVEAL CYTOPLASMIC INCLUSIONS CONSISTENT WITH ANAPLA SMOSIS. 3. BLASTS AND SCHISTOCYTES ARE NOT SEEN. 4. THE TRIAD OF CHANGES SUGGESTING BACTERIAL SEPSIS TO INCLUDE TOXIC GRANULATIONS AND DOHLE BODIES IS NOT SEEN. Discharge medication of Doxycycline 100 mg twice a day for 12 more days sent to [facility] on [address] [place] [address]. Patient was encouraged to quit alcohol use at home because on ultrasound of the liver or increased hepatic echogenicity, a finding most often seen in hepatic steatosis. and also because of transaminitis (elevated liver enzymes) AST from 466 on admission to 334 by 05/18/2020 and ALT from 355 on admission to 403 by 05/18/2020 Patient may take acetaminophen 325 every 6 hours as needed for pain of fever and should avoid more than 2000 mg of acetaminophen a day to avoid liver damage. Patient may alternate with ibupofren 200 mg every 6 hours as needed for pain or fever. Patient should have liver function enzymes rechecked by primary care doctor Patient may take senna daily for constipation follow up clinic appointment 05/25/2020 11:40 AM Provider Izabel King DO Department [facility] (3) Elevated LFTs: Transaminitis -Ultrasound of Liver: Increased hepatic echogenicity, a finding most often seen in hepatic steatosis; Ultrasonographically normal gallbladder. No ductal dilatation; Suboptimal visualization of pancreas; Right pleural effusion on ultrasound but was not seen on admission chest X ray so suggests that any effusion is likely minimal -alternate between acetaminophen and ibuprofen prn for fever or pain -advise limiting alcohol use when outpatient Constipation -senna and miralax while inpatient, senna on discharge (4) GERD (gastroesophageal reflux disease): -Continue PPI mild hypokalemia -serum potassium 3.3 on 05/17/2020, oral potassium ordered -potassium levels now at goal Code status: FULL Total Time Total Time Spent Total Time Spent (In Minutes): 40 minutes Total Time Includes: Examination of the Patient, Discharge Planning, Medication Reconciliation and Communication With Other Providers Discharge Plan Discharge Items Patient Disposition: Home - Self-Care Reason For Visit: SEPSIS, TRANSAMINITIS Discharge Diagnosis: 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 ) Diet: Regular Addtl Attending Provider Instructions: Patient was empirically started on ceftriaxone daily and doxycycline 100 mg twice a day starting on 05/16/2020 admission. Discharge medication of Doxycycline 100 mg twice a day for 12 more days sent to [facility] on [address] [place] [address]. Patient was encouraged to quit alcohol use at home because on ultrasound of the liver or increased hepatic echogenicity, a finding most often seen in hepatic steatosis. and also because of transaminitis (elevated liver enzymes) AST from 466 on admission to 334 by 05/18/2020 and ALT from 355 on admission to 403 by 05/18/2020 Patient may take acetaminophen 325 every 6 hours as needed for pain of fever and should avoid more than 2000 mg of acetaminophen a day to avoid liver damage. Patient may alternate with ibupofren 200 mg every 6 hours as needed for pain or fever. Patient should have liver function enzymes rechecked by primary care doctor Patient may take senna daily for constipation follow up clinic appointment 05/25/2020 11:40 AM Provider Izabel King DO [facility] Pending Studies at Discharge: No Studies:: PERIPHERAL SMEAR FOR REVIEW: 1. NORMOCHROMIC/NORMOCYTIC RED BLOOD CELLS, UNREMARKABLE PLATELETS, UNREMARKABLE MONOCYTES, AND DECREASED NUMBERS OF CYTOLOGICALLY UNREMARKABLE LYMPHOCYTES ARE ALL SEEN. 2. RARE PMN LEUKOCYTES REVEAL CYTOPLASMIC INCLUSIONS CONSISTENT WITH ANAPLASMO SIS. 3. BLASTS AND SCHISTOCYTES ARE NOT SEEN. 4. THE TRIAD OF CHANGES SUGGESTING BACTERIAL SEPSIS TO INCLUDE TOXIC GRANULATIONS AND DOHLE BODIES IS NOT SEEN. Stand-Alone Forms: [facility], Smoking Cessation Medications and DC Order Prescriptions: New doxycycline hyclate 100 mg Capsule 100 mg PO BID 12 Days Qty: 24 RF: 0 acetaminophen 325 mg Tablet 325 mg PO Q6H PRN (Reason: fever or pain) 5 Days Qty: 20 RF: 0 ibuprofen 200 mg Tablet 200 mg PO Q6H PRN (Reason: fever or pain) 5 Days Qty: 20 RF: 0 sennosides [Senokot] 8.6 mg Tablet 8.6 mg PO QAM 30 Days Qty: 30 RF: 0 Continued esomeprazole magnesium [Nexium] 20 mg Capsule,Delayed Release(Dr/Ec) 20 mg PO QAM RF: 0 Discharge Orders: Discharge Order (Routine); Ordered 05/18/20 Ordered By: Moises Cabrera Admission Data Admit Date/Time: 05/16/20 15:12 Attending Provider: Moises Cabrera Admit Provider: Kenji Farr Primary Care Provider: Ant Shepard Other Providers: Kenji Farr
== END 2020-05-18 14:02 | disposition home or self-care (01) | DRG 867 ==
LOC: ED 11:15 → 2N 15:12 → SUATTDRO 15:12 → 2N 05-17 00:31